=== PATIENT | female | born 1940 | race Caucasian/White ===

== ENCOUNTER 2017-11-12 10:34 | Observation (INO) | payer MEDICARE, OTHER ==
[2017-11-12] MEDS ORDERED: HYDROmorphone 1 MG/ML Syringe IM ONE (11:53)
--- NOTE | 2017-11-12 12:46 | CT ---
Hip wo Cont Lt INDICATION: soft tissue trauma TECHNIQUE: CT images of the pelvis obtained. Coronal and sagittal reformatted images obtained. No contrast given Dosage reduction and iterative reconstruction techniques employed. COMPARISON: None FINDINGS: No fracture or dislocation. Proximally 13 x 9 x 4 cm hematoma along the gluteal muscles o n the left. Mild degenerative change in the hips and severe degenerative change at the symphysis incl uding possible old fracture fragments. No intrapelvic acute process. Sigmoid diverticulosis without e vidence of diverticulitis. IMPRESSION: 1. Probable large hematoma along the left gluteal muscles. 2. No acute fracture or dislocation.
--- NOTE | 2017-11-12 12:55 | EDM.PDOC ---
ED HPI GENERAL MEDICAL PROBLEM - General Chief Complaint: Lower Extremity Injury/Pain Stated Complaint: FELL ON LEFT SIDE ON HIP AREA Time Seen by Provider: 11/12/17 11:30 Source of Information: Reports: Patient History Limitations: Reports: No Limitations - History of Present Illness INITIAL COMMENTS - FREE TEXT/NARRATIVE: This patient fell a couple feet off her deck and landed on her left side. She complains of pain and swelling to the left hip area. She's able to walk without difficulty except for pain. No anticoagulation. Left Pain Score (Numeric/FACES): 7 - Related Data Allergies Allergy/AdvReac Type Severity Reaction Status Date / Time RADHA Inhibitors Allergy Cough Verified 11/12/17 11:10 acetaminophen Allergy Rash Verified 11/12/17 11:10 [From Darvocet-N] amoxicillin [From Augmentin] Allergy Rash Verified 11/12/17 11:10 clavulanic acid Allergy Rash Verified 11/12/17 11:10 [From Augmentin] propoxyphene Allergy Rash Verified 11/12/17 11:10 [From Darvocet-N] Sulfa (Sulfonamide Allergy Rash Verified 11/12/17 11:10 Antibiotics) Home Meds: Home Meds Aspirin [Halfprin] 81 mg PO DAILY 11/12/17 [History] Clindamycin Phosphate [Cleocin T 1% Gel] 1 applic TOP BID 11/12/17 [History] Levothyroxine 125 mcg PO ACBREAKFAST 11/12/17 [History] Losartan/Hydrochlorothiazide [Losartan-HCTZ 100-12.5 MG] 1 tab PO DAILY [History] Meloxicam 15 mg PO DAILY 11/12/17 [History] Naproxen Sodium [Aleve] 220 mg PO BID 11/12/17 [History] Simvastatin [Zocor] 40 mg PO DAILY 11/12/17 [History] Past Medical History Cardiovascular History: Reports: High Cholesterol, Hypertension Musculoskeletal History: Reports: Osteoarthritis Endocrine/Metabolic History: Reports: Hypothyroidism Oncologic (Cancer) History: Reports: Other (See Below) Other Oncologic History: endometrial cancer - Past Surgical History HEENT Surgical History: Reports: Cataract Surgery Cardiovascular Surgical History: Reports: None GI Surgical History: Reports: Cholecystectomy Female Surgical History: Reports: Hysterectomy Social & Family History - Tobacco Use Smoking Status *Q: Never Smoker - Recreational Drug Use Recreational Drug Use: No Review of Systems - Review of Systems Review Of Systems: ROS reveals no pertinent complaints other than HPI. (Denies any other injury) ED EXAM, GENERAL - Physical Exam Exam: See Below Exam Limited By: No Limitations General Appearance: Alert, Mild Distress, Obese Eye Exam: Bilateral Eye: Normal Inspection Respiratory/Chest: Lungs Clear Cardiovascular: Regular Rate, Rhythm Back Exam: Normal Inspection Extremities: Other (FROM left hip but large hard mass posterior to left hip appears to be in soft tissue.) Course - Vital Signs Last Recorded V/S: Last Vital Signs Temp 35.7 C 11/12/17 12:13 Pulse 68 11/12/17 12:13 Resp 16 11/12/17 12:13 BP 111/52 L 11/12/17 12:13 Pulse Ox 90 L 11/12/17 12:13 - Orders/Labs/Meds Labs: Laboratory Tests 11/12/17 11/12/17 11/12/17 Range/Units 12:51 12:51 12:51 WBC 15.7 H (4.5-11.0) K/uL RBC 4.58 (3.30-5.50) M/uL Hgb 14.0 (12.0-15.0) g/dL Hct 42.0 (36.0-48.0) % MCV 92 (80-98) fL MCH 31 (27-31) pg MCHC 33 (32-36) % Plt Count 267 (150-400) K/uL Neut % (Auto) 84 H (36-66) % Lymph % (Auto) 9 L (24-44) % [place] % (Auto) 6 (2-6) % Eos % (Auto) 0 L (2-4) % Baso % (Auto) 0 (0-1) % PT 10.7 (9.5-12.0) sec INR 0.97 (0.80-1.20) APTT 24.2 L (27.0-36.0) sec Sodium 141 (140-148) mmol/L Potassium 3.9 (3.6-5.2) mmol/L Chloride 106 (100-108) mmol/L Carbon Dioxide 24 (21-32) mmol/L Anion Gap 10.7 (5.0-14.0) mmol/L BUN 17 (7-18) mg/dL Creatinine 0.9 (0.6-1.0) mg/dL Est Cr Clr Drug Dosing 43.77 mL/min Estimated GFR (MDRD) > 60 (>60) Glucose 141 H (74-106) mg/dL Calcium 9.0 (8.5-10.1) mg/dL Meds: Medications Discontinued Medications Generic Name Dose Route Start Last Admin Trade Name Freq PRN Reason Stop Dose Admin Hydromorphone HCl 1 mg 11/12/17 11:53 11/12/17 11:57 Dilaudid IM 11/12/17 11:54 1 mg ONETIME ONE Administration - Radiology Interpretation Free Text/Narrative:: CT shows about 13 x 9 x 4 hematoma in soft tissue posterior to left hip. Looks like additional extravasation into tissue - Re-Assessments/Exams Free Text/Narrative Re-Assessment/Exam: 11/12/17 12:[address] Arreguin and he will see in ER. 11/12/17 13:12 Dr Montalvo taking her to surgery Departure - Departure Time of Disposition: 13:13 Disposition: Admitted As Inpatient 64 Condition: Fair Clinical Impression: Hematoma of hip - Discharge Information Referrals: PCP,None [Primary Care Provider] - Forms: ED Department Discharge
[2017-11-12] MEDS ORDERED: hydrOXYzine HCl 100 MG/2 ML SDV IM PRN ×2 (13:52→16:19)
[2017-11-12] MEDS ORDERED: fentaNYL 100 MCG/2 ML SDV IVPUSH PRN ×2 (13:52→16:19)
[2017-11-12] MEDS ORDERED: Zolpidem 5 MG Tab PO PRN ×2 (13:52→16:19)
[2017-11-12] MEDS ORDERED: diphenhydrAMINE 50 MG/ML SDV IVPUSH PRN ×2 (13:52→16:19)
[2017-11-12] MEDS ORDERED: Benzocaine/Cetylpyridinium/Menthol Lozenge MUCMEM PRN ×2 (13:52→16:19)
[2017-11-12] MEDS ORDERED: oxyCODONE 5 MG Tab PO PRN (13:54)
[2017-11-12] MEDS: Lidocaine 1% with EPINEPHrine 1:100,000 50 ML MDV ONE ×2 (14:16→14:45)
[2017-11-12] MEDS: Bupivacaine 0.5% 50 ML MDV ONE ×2 (14:16→14:45)
[2017-11-12] MEDS ORDERED: Clindamycin Phosphate 900 MG in Sodium Chloride 0.9% 100 ML IV ONE (14:30)
[2017-11-12] MEDS ORDERED: Propofol 200 MG/20 ML SDV ONE (14:34)
[2017-11-12] MEDS ORDERED: Lactated Ringers 1,000 ML ONE (14:53)
[2017-11-12] MEDS ORDERED: Docusate Sodium 100 MG Cap PO PRN (16:19)
[2017-11-12] MEDS ORDERED: Ondansetron 4 MG/2 ML SDV IVPUSH PRN (16:19)
[2017-11-12] MEDS ORDERED: Cyclobenzaprine 10 MG Tab PO ONE (16:27)
[2017-11-12] MEDS ORDERED: Cyclobenzaprine 10 MG Tab ONE (16:47)
[2017-11-12] MEDS: Acetaminophen/HYDROcodone 325-5 MG Tab PO PRN (19:52)
[2017-11-13] MEDS: Acetaminophen/HYDROcodone 325-5 MG Tab PO PRN ×3 (00:01→09:49)
[2017-11-13] MEDS: Cyclobenzaprine 10 MG Tab PO PRN ×2 (03:10→08:55)
--- NOTE | 2017-11-13 08:42 | CR ---
Forearm 2V Lt INDICATION: pain COMPARISON: None FINDINGS: 2 views. No fracture, dislocation, or other acute bony abnormality. Degenerative change a t the wrist including chondrocalcinosis at the TFC.
--- NOTE | 2017-11-13 08:59 | OR ---
DATE OF PROCEDURE: 11/12/2017 PROCEDURE: Evacuation of hematoma, left hip, 13 cm x 9 cm. COMPLICATIONS: None. PAD MACHINE OFFBEARER: None. PREOPERATIVE DIAGNOSIS: Hematoma. POSTOPERATIVE DIAGNOSIS: Hematoma. RISKS: Risks, benefits, alternatives, and limitations including, but not limited to infection and bleeding were explained to the patient, and they wished to proceed. PROCEDURE IN DETAIL: The patient was placed in right lateral decubitus position. Left hip had been marked, prepped and draped. A single effie was created in the skin of about 1 cm in size. The hematoma was evacuated using suction and irrigation. A 10 flat Devaughn-Castaneda was then placed within this. This was then sutured into place and dressings were applied. The patient tolerated the procedure well. Phuc Arreguin MD /[id number]
--- NOTE | 2017-11-13 14:26 | DISCH ---
DISCHARGE DIAGNOSIS: Status post drainage of hematoma, left hip. COMPLICATION: Complication during this hospitalization, none. HOSPITAL COURSE: A pleasant 77-year-old female who had a traumatic injury with associated hematoma. The patient was taken to the operating room, had subsequent incision and drainage of this hematoma and drain placement. No complications during this hospitalization. No additional consultations. FOLLOWUP: With Surgery in 7 to 14 days. DISCHARGE MEDICATIONS: Please see MAR, but includes Flexeril for pain. ACTIVITY: As tolerated.
--- NOTE | 2017-11-13 14:32 | PN ---
DATE OF SERVICE: 11/13/2017 SUBJECTIVE: The patient is doing very well. Pain is well controlled. No nausea, vomiting, shortness of breath, or chest pain. She is tolerating the Flexeril well. OBJECTIVE: VITAL SIGNS: Temperature 96.7, blood pressure 116/58, and 91% on room air. HIP: Wound itself, no change. There is some air leaking from the LETITIA, which is acceptable. ASSESSMENT: Status post drainage of hematoma. PLAN: The patient will be discharged today. Please see discharge instructions for further details. Phuc Arreguin MD /[id number]
== END 2017-11-13 11:19 | disposition home or self-care (01) ==
LOC: JP.ED 10:34 → JP.SDS 13:52 → JP.ED 13:52 → JP.MS 13:52 → JP.ED 14:40 → JP.MS 14:40 → JP.SDS 17:26 → JP.MS 18:45
PROVIDERS: ADMIT Surgery; ATTEND Surgery
DX: S70.02XA Contusion of left hip, initial encounter (principal); E78.00 Pure hypercholesterolemia, unspecified; I10 Essential (primary) hypertension; M19.90 Unspecified osteoarthritis, unspecified site; E03.9 Hypothyroidism, unspecified; G47.33 Obstructive sleep apnea (adult) (pediatric); Z79.82 Long term (current) use of aspirin; Z79.1 Long term (current) use of non-steroidal anti-inflammatories (NSAID); Z79.899 Other long term (current) drug therapy; Z88.8 Allergy status to other drugs, medicaments and biological substances; Z88.0 Allergy status to penicillin; Z88.2 Allergy status to sulfonamides; W17.89XA Other fall from one level to another, initial encounter
CPT/HCPCS: 10140; 36415; 73090; 73700; 80048; 85025; 85610; 85730; 96365; 96372; 96375; 99285; A9270; J1170; J2704; J7030; J7120; S0077

== ENCOUNTER 2017-11-15 10:00 | Emergency (ER) | payer MEDICARE, OTHER ==
[2017-11-15] MEDS ORDERED: HYDROmorphone 0.5 MG/0.5 ML Syringe IVPUSH ONE ×2 (10:11→10:46)
--- NOTE | 2017-11-15 10:17 | EDM.PDOC ---
ED HPI GENERAL MEDICAL PROBLEM - General Chief Complaint: Chest Pain Stated Complaint: BACK PAIN, TIGHTNESS IN CHEST Time Seen by Provider: 11/15/17 10:01 Source of Information: Reports: Patient History Limitations: Reports: No Limitations - History of Present Illness INITIAL COMMENTS - FREE TEXT/NARRATIVE: Patient fell a couple of days ago; had a hematoma to the left hip; has been drained and a drain is in place. She states she is having pain to the left parascapular region. Has been constant since 0300 and it hurts to take a deep breath; denies cad, lung issues or diabetes. She used otc meds and muscle relaxer but this isn't helping her, and thus she has come to the ER. Onset: Gradual Location: Reports: Chest Quality: Reports: Sharp, Stabbing Severity: Moderate Improves with: Reports: None Worsens with: Reports: Movement Associated Symptoms: Reports: Loss of Appetite, Shortness of Breath (feels like she cannot take a deep breath) Chest Pain Score (Numeric/FACES): 4 Back Pain Score (Numeric/FACES): 10 - Related Data Allergies Allergy/AdvReac Type Severity Reaction Status Date / Time RADHA Inhibitors Allergy Cough Verified 11/15/17 10:18 acetaminophen Allergy Rash Verified 11/15/17 10:18 [From Darvocet-N] amoxicillin [From Augmentin] Allergy Rash Verified 11/15/17 10:18 clavulanic acid Allergy Rash Verified 11/15/17 10:18 [From Augmentin] oxycodone Allergy Rash Verified 11/15/17 10:18 propoxyphene Allergy Rash Verified 11/15/17 10:18 [From Darvocet-N] Sulfa (Sulfonamide Allergy Rash Verified 11/15/17 10:18 Antibiotics) Home Meds: Home Meds Aspirin [Halfprin] 81 mg PO DAILY 11/12/17 [History] Clindamycin Phosphate [Cleocin T 1% Gel] 1 applic TOP BID 11/12/17 [History] Levothyroxine 125 mcg PO ACBREAKFAST 11/12/17 [History] Losartan/Hydrochlorothiazide [Losartan-HCTZ 100-12.5 MG] 1 tab PO DAILY [History] Meloxicam 15 mg PO DAILY 11/12/17 [History] Naproxen Sodium [Aleve] 220 mg PO BID 11/12/17 [History] Simvastatin [Zocor] 40 mg PO DAILY 11/12/17 [History] Cyclobenzaprine [Flexeril] 10 mg PO Q4H 11/15/17 [History] Past Medical History Cardiovascular History: Reports: High Cholesterol, Hypertension Musculoskeletal History: Reports: Osteoarthritis Endocrine/Metabolic History: Reports: Hypothyroidism Oncologic (Cancer) History: Reports: Other (See Below) Other Oncologic History: endometrial cancer - Past Surgical History HEENT Surgical History: Reports: Cataract Surgery Cardiovascular Surgical History: Reports: None GI Surgical History: Reports: Cholecystectomy Female Surgical History: Reports: Hysterectomy ED ROS GENERAL - Review of Systems Review Of Systems: See Below Constitutional: Reports: Decreased Appetite HEENT: Reports: No Symptoms Respiratory: Reports: Shortness of Breath (hard to take a deep breath; no visibly sob) Cardiovascular: Reports: Chest Pain (chest wall pain, between shoulder blades more to the left side) GI/Abdominal: Reports: No Symptoms : Reports: No Symptoms Musculoskeletal: Reports: Joint Pain (left hip pain) Neurological: Reports: No Symptoms ED EXAM, GENERAL - Physical Exam Exam: See Below Exam Limited By: No Limitations General Appearance: Alert, WD/WN, No Apparent Distress Head: Atraumatic, Normocephalic Neck: Normal Inspection, Full Range of Motion Respiratory/Chest: No Respiratory Distress, Lungs Clear, Normal Breath Sounds Cardiovascular: Regular Rate, Rhythm GI/Abdominal: Normal Bowel Sounds Extremities: Other (dry skin with peeling, lower extremities, left hip, LETITIA drain in place; site is clean and dry; no evidence of infection) Neurological: Alert, Oriented, CN II-XII Intact, Normal Cognition Psychiatric: Normal Affect, Normal Mood Skin Exam: Warm, Dry EKG INTERPRETATION EKG Date: 11/15/17 Time: 10:00 Rhythm: NSR Rate (Beats/Min): 94 [place]: Normal P-Wave: Present QRS: Normal ST-T: Normal QT: Normal Comparison: NA - No Prior EKG Course - Vital Signs Last Recorded V/S: Last Vital Signs Temp 96.6 F 11/15/17 10:05 Pulse 92 11/15/17 10:05 Resp 20 11/15/17 10:05 BP 144/61 H 11/15/17 10:05 Pulse Ox 95 11/15/17 10:05 - Orders/Labs/Meds Orders: Active Orders 24 hr Category Date Time Status Cardiac Monitoring [RC] .As Directed Care 11/15/17 10:04 Active EKG Documentation Completion [RC] ASDIRECTED Care 11/15/17 10:05 Active Peripheral IV Care [RC] . DIRECTED Care 11/15/17 10:11 Active Chest 2V [CR] Stat Exams 11/15/17 10:45 Taken Sodium Chloride 0.9% [Saline Flush] Med 11/15/17 10:11 Active 10 ml FLUSH ASDIRECTED PRN Peripheral IV Insertion Adult [OM.PC] Stat Oth 11/15/17 10:11 Ordered EKG 12 Lead [EK] Stat Ther 11/15/17 10:04 Ordered Medication Orders Sodium Chloride (Saline Flush) 10 ml FLUSH ASDIRECTED PRN PRN Reason: Keep Vein Open Last Admin: 11/15/17 11:37 Dose: 10 ml Admin: 11/15/17 10:29 Dose: 10 ml Labs: Laboratory Tests 11/15/17 11/15/17 11/15/17 Range/Units 10:20 10:20 10:20 WBC 9.2 (4.5-11.0) K/uL RBC 4.35 (3.30-5.50) M/uL Hgb 13.2 (12.0-15.0) g/dL Hct 40.5 (36.0-48.0) % MCV 93 (80-98) fL MCH 30 (27-31) pg MCHC 33 (32-36) % Plt Count 278 (150-400) K/uL Neut % (Auto) 79 H (36-66) % Lymph % (Auto) 13 L (24-44) % [place] % (Auto) 6 (2-6) % Eos % (Auto) 2 (2-4) % Baso % (Auto) 0 (0-1) % APTT 25.9 L (27.0-36.0) sec Sodium 139 L (140-148) mmol/L Potassium 3.8 (3.6-5.2) mmol/L Chloride 101 (100-108) mmol/L Carbon Dioxide 29 (21-32) mmol/L Anion Gap 12.8 (5.0-14.0) mmol/L BUN 13 (7-18) mg/dL Creatinine 0.9 (0.6-1.0) mg/dL Est Cr Clr Drug Dosing 43.77 mL/min Estimated GFR (MDRD) > 60 (>60) Glucose 118 H (74-106) mg/dL Calcium 9.5 (8.5-10.1) mg/dL Total Bilirubin 0.6 (0.2-1.0) mg/dL AST 26 (15-37) U/L ALT 24 (12-78) U/L Alkaline Phosphatase 74 (46-116) U/L Troponin I < 0.017 (0.000-0.056) ng/mL Total Protein 7.0 (6.4-8.2) g/dL Albumin 3.4 (3.4-5.0) g/dL Globulin 3.6 H (2.3-3.5) g/dL Albumin/Globulin Ratio 0.9 L (1.2-2.2) Meds: Medications Generic Name Dose Route Start Last Admin Trade Name Freq PRN Reason Stop Dose Admin Sodium Chloride 10 ml 11/15/17 10:11 11/15/17 11:37 Saline Flush FLUSH 10 ml ASDIRECTED PRN Administration Keep Vein Open Discontinued Medications Generic Name Dose Route Start Last Admin Trade Name Freq PRN Reason Stop Dose Admin Hydromorphone HCl 0.5 mg 11/15/17 10:11 11/15/17 10:29 Dilaudid IVPUSH 11/15/17 10:12 0.5 mg ONETIME ONE Administration Hydromorphone HCl 0.5 mg 11/15/17 10:46 11/15/17 11:36 Dilaudid IVPUSH 11/15/17 10:47 0.5 mg ONETIME ONE Administration - Re-Assessments/Exams Free Text/Narrative Re-Assessment/Exam: 11/15/17 12:15 chest xray, ekg and labs reviewed with patient and daughter. Stable. Pain is managed with dilaudid. Departure - Departure Time of Disposition: 12:16 Disposition: Home, Self-Care 01 Condition: Good Clinical Impression: Chest wall pain - Discharge Information Instructions: Nonspecific Chest Pain, Chest Wall Pain Referrals: PCP,None [Primary Care Provider] - Forms: ED Department Discharge Additional Instructions: Be sure to be taking deep breaths, even if it hurts Ibuprofen 400-600 mg every 8 hours for pain [place] as directed; may be taken with Ibuprofen; do not drink or drive while using pain medication. Be sure to hydrate plenty; pain medications can make you constipated. - Problem List & Annotations (1) Chest wall pain SNOMED Code(s): 297643621 Code(s): R07.89 - OTHER CHEST PAIN Status: Acute Priority: Medium Current Visit: Yes - Problem List Review Problem List Initiated/Reviewed/Updated: Yes - My Orders Last 24 Hours: My Active Orders 11/15/17 10:04 Cardiac Monitoring [RC] .As Directed EKG 12 Lead [EK] Stat 11/15/17 10:05 EKG Documentation Completion [RC] ASDIRECTED 11/15/17 10:11 Peripheral IV Care [RC] . DIRECTED Sodium Chloride 0.9% [Saline Flush] 10 ml FLUSH ASDIRECTED PRN Peripheral IV Insertion Adult [OM.PC] Stat 11/15/17 10:45 Chest 2V [CR] Stat - Assessment/Plan Last 24 Hours: My Active Orders 11/15/17 10:04 Cardiac Monitoring [RC] .As Directed EKG 12 Lead [EK] Stat 11/15/17 10:05 EKG Documentation Completion [RC] ASDIRECTED 11/15/17 10:11 Peripheral IV Care [RC] . DIRECTED Sodium Chloride 0.9% [Saline Flush] 10 ml FLUSH ASDIRECTED PRN Peripheral IV Insertion Adult [OM.PC] Stat 11/15/17 10:45 Chest 2V [CR] Stat
[2017-11-15] MEDS: Sodium Chloride 0.9% 10 ML Syringe FLUSH PRN ×2 (10:29→11:37)
--- NOTE | 2017-11-16 09:06 | CR ---
CHEST: AP and lateral sitting CLINICAL HISTORY:Shortness of breath, pain, fall COMPARISON:2006 FINDINGS: There are slightly displaced fractures of the left third and fourth the posterior ribs the re is no obvious pleural effusion or pneumothorax.. IMPRESSION: Acute fractures of the left third and fourth ribs. Additional rib fractures are suspecte d. If relevant, dedicated rib study is a consideration Lung hatch are clear
== END 2017-11-15 12:36 | disposition home or self-care (01) ==
LOC: JP.ED 10:00
DX: R07.89 Other chest pain (principal); E78.00 Pure hypercholesterolemia, unspecified; I10 Essential (primary) hypertension; E03.9 Hypothyroidism, unspecified; Z88.6 Allergy status to analgesic agent; Z88.5 Allergy status to narcotic agent; Z88.2 Allergy status to sulfonamides; Z88.1 Allergy status to other antibiotic agents; Z79.82 Long term (current) use of aspirin; Z79.899 Other long term (current) drug therapy
CPT/HCPCS: 36415; 71046; 80053; 84484; 85025; 85730; 93005; 96361; 96374; 96376; 99284; J1170; J7050

== ENCOUNTER 2017-11-18 13:48 | Emergency (ER) | payer MEDICARE, OTHER ==
[2017-11-18] MEDS ORDERED: Sodium Chloride 0.9% 10 ML Syringe FLUSH ONE (16:10)
[2017-11-18] MEDS ORDERED: Sodium Chloride 0.9% 75 ML IV SCH (16:15)
[2017-11-18] MEDS ORDERED: Iopamidol 612 MG/ML 100 ML Bottle IV SCH (16:15)
--- NOTE | 2017-11-18 17:27 | EDM.PDOC ---
ED HPI GENERAL MEDICAL PROBLEM - General Chief Complaint: General Stated Complaint: BACK AND RIB PAIN FELL NOVEMBER 12 Time Seen by Provider: 11/18/17 14:40 Source of Information: Reports: Patient History Limitations: Reports: No Limitations - History of Present Illness INITIAL COMMENTS - FREE TEXT/NARRATIVE: pt fell several days ago and hit the left side of her ches. She waas found to have 5 fractured ribs. She is doing ok at home. She had a chest xray today which showed some pleural effusion. Onset: Today, Gradual Duration: Day(s):, Other (pt has been dealing with the pain for days. She did receive [place] from the clinic today. ) Location: Reports: Chest Associated Symptoms: Reports: No Other Symptoms, Shortness of Breath, Other ( pain with deep breathing. ) left rib Pain Score (Numeric/FACES): 8 - Related Data Allergies Allergy/AdvReac Type Severity Reaction Status Date / Time RADHA Inhibitors Allergy Cough Verified 11/18/17 14:43 acetaminophen Allergy Rash Verified 11/18/17 14:43 [From Darvocet-N] amoxicillin [From Augmentin] Allergy Rash Verified 11/18/17 14:43 clavulanic acid Allergy Rash Verified 11/18/17 14:43 [From Augmentin] oxycodone Allergy Rash Verified 11/18/17 14:43 propoxyphene Allergy Rash Verified 11/18/17 14:43 [From Darvocet-N] Sulfa (Sulfonamide Allergy Rash Verified 11/18/17 14:43 Antibiotics) Home Meds: Home Meds Aspirin [Halfprin] 81 mg PO DAILY 11/12/17 [History] Clindamycin Phosphate [Cleocin T 1% Gel] 1 applic TOP BID 11/12/17 [History] Levothyroxine 125 mcg PO ACBREAKFAST 11/12/17 [History] Losartan/Hydrochlorothiazide [Losartan-HCTZ 100-12.5 MG] 1 tab PO DAILY [History] Meloxicam 15 mg PO DAILY 11/12/17 [History] Naproxen Sodium [Aleve] 220 mg PO BID 11/12/17 [History] Simvastatin [Zocor] 40 mg PO DAILY 11/12/17 [History] Cyclobenzaprine [Flexeril] 10 mg PO Q4H 11/15/17 [History] Hydrocodone/Acetaminophen [Hydrocodon-Acetaminophen 5-325] 1 tab PO ASDIRECTED PRN 11/18/17 [History] Past Medical History Cardiovascular History: Reports: High Cholesterol, Hypertension Musculoskeletal History: Reports: Osteoarthritis Endocrine/Metabolic History: Reports: Hypothyroidism Oncologic (Cancer) History: Reports: Other (See Below) Other Oncologic History: endometrial cancer - Past Surgical History HEENT Surgical History: Reports: Cataract Surgery Cardiovascular Surgical History: Reports: None GI Surgical History: Reports: Cholecystectomy Female Surgical History: Reports: Hysterectomy Social & Family History - Tobacco Use Smoking Status *Q: Never Smoker - Recreational Drug Use Recreational Drug Use: No ED ROS GENERAL - Review of Systems Review Of Systems: See Below Constitutional: Reports: No Symptoms HEENT: Reports: No Symptoms Respiratory: Reports: Shortness of Breath, Cough Cardiovascular: Reports: No Symptoms Endocrine: Reports: No Symptoms GI/Abdominal: Reports: No Symptoms : Reports: No Symptoms Musculoskeletal: Reports: No Symptoms Skin: Reports: No Symptoms ED EXAM, GENERAL - Physical Exam Exam: See Below Free Text/Narrative:: pt fell and was found to have 5 fractured ribs on the left. She is deep breathing fairl;y well. She has good o2 sats. Exam Limited By: No Limitations General Appearance: Alert, Anxious, Moderate Distress Ears: Normal TMs Nose: Normal Inspection Throat/Mouth: Normal Inspection Head: Atraumatic Neck: Normal Inspection Respiratory/Chest: No Respiratory Distress, Other (pt is deep breathing well and she has good air exchange at the lung bases. ) Cardiovascular: Regular Rate, Rhythm GI/Abdominal: Soft, Non-Tender (Female) Exam: Deferred Rectal (Female) Exam: Deferred Back Exam: Normal Inspection Extremities: Normal Inspection Neurological: Alert, Oriented, Normal Cognition Course - Vital Signs Last Recorded V/S: Last Vital Signs Temp 35.7 C 11/18/17 14:41 Pulse 80 11/18/17 17:00 Resp 16 11/18/17 17:00 BP 150/63 H 11/18/17 17:00 Pulse Ox 99 11/18/17 17:00 - Orders/Labs/Meds Orders: Active Orders 24 hr Category Date Time Status Chest w Cont [CT] Stat Exams 11/18/17 16:01 Taken Iopamidol [Isovue-300 (61%)] Med 11/18/17 16:15 Active 100 ml IV . DIRECTED Sodium Chloride 0.9% [Normal Saline] 75 ml Med 11/18/17 16:15 Active IV ASDIRECTED Medication Orders Sodium Chloride (Normal Saline) 75 mls @ 3 mls/sec IV ASDIRECTED AMANDA Last Admin: 11/18/17 16:52 Dose: 3 mls/sec Iopamidol (Isovue-300 (61%)) 100 ml IV . DIRECTED AMANDA Last Admin: 11/18/17 16:52 Dose: 100 ml Labs: Laboratory Tests 11/18/17 11/18/17 Range/Units 16:00 16:00 WBC 8.5 (4.5-11.0) K/uL RBC 4.39 (3.30-5.50) M/uL Hgb 13.3 (12.0-15.0) g/dL Hct 41.0 (36.0-48.0) % MCV 93 (80-98) fL MCH 30 (27-31) pg MCHC 32 (32-36) % Plt Count 336 (150-400) K/uL Neut % (Auto) 71 H (36-66) % Lymph % (Auto) 17 L (24-44) % [place] % (Auto) 8 H (2-6) % Eos % (Auto) 4 (2-4) % Baso % (Auto) 0 (0-1) % Sodium 136 L (140-148) mmol/L Potassium 4.1 (3.6-5.2) mmol/L Chloride 100 (100-108) mmol/L Carbon Dioxide 28 (21-32) mmol/L Anion Gap 12.1 (5.0-14.0) mmol/L BUN 17 (7-18) mg/dL Creatinine 0.8 (0.6-1.0) mg/dL Est Cr Clr Drug Dosing 49.24 mL/min Estimated GFR (MDRD) > 60 (>60) Glucose 114 H (74-106) mg/dL Calcium 9.2 (8.5-10.1) mg/dL Total Bilirubin 0.7 (0.2-1.0) mg/dL AST 24 (15-37) U/L ALT 25 (12-78) U/L Alkaline Phosphatase 86 (46-116) U/L Total Protein 7.0 (6.4-8.2) g/dL Albumin 3.1 L (3.4-5.0) g/dL Globulin 3.9 H (2.3-3.5) g/dL Albumin/Globulin Ratio 0.8 L (1.2-2.2) Meds: Medications Generic Name Dose Route Start Last Admin Trade Name Freq PRN Reason Stop Dose Admin Sodium Chloride 75 mls @ 3 mls/sec 11/18/17 16:15 11/18/17 16:52 Normal Saline IV 3 mls/sec ASDIRECTED AMANDA Administration Iopamidol 100 ml 11/18/17 16:15 11/18/17 16:52 Isovue-300 (61%) IV 100 ml . DIRECTED AMANDA Administration Discontinued Medications Generic Name Dose Route Start Last Admin Trade Name Freq PRN Reason Stop Dose Admin Sodium Chloride 10 ml 11/18/17 16:10 11/18/17 16:51 Saline Flush FLUSH 11/18/17 16:11 10 ml ONETIME ONE Administration - Re-Assessments/Exams Free Text/Narrative Re-Assessment/Exam: 11/18/17 17:34 cat scan of the chest was done which showed a very small pleural effussion, and the 5 fractured ribs. Departure - Departure Time of Disposition: 17:24 Disposition: Home, Self-Care 01 Condition: Fair Clinical Impression: Fracture of five ribs of left side - Discharge Information Referrals: PCP,None [Primary Care Provider] - Forms: ED Department Discharge Care Plan Goals: cont with same care, use the essentive spirometer, cont with pain meds she is on , get up and do some walking when she is up to the bathroom. - My Orders Last 24 Hours: My Active Orders 11/18/17 16:01 Chest w Cont [CT] Stat 11/18/17 16:15 Iopamidol [Isovue-300 (61%)] 100 ml IV . DIRECTED Sodium Chloride 0.9% [Normal Saline] 75 ml IV ASDIRECTED - Assessment/Plan Last 24 Hours: My Active Orders 11/18/17 16:01 Chest w Cont [CT] Stat 11/18/17 16:15 Iopamidol [Isovue-300 (61%)] 100 ml IV . DIRECTED Sodium Chloride 0.9% [Normal Saline] 75 ml IV ASDIRECTED
== END 2017-11-18 18:32 | disposition home or self-care (01) ==
LOC: JP.ED 13:48
DX: S22.42XA Multiple fractures of ribs, left side, initial encounter for closed fracture (principal); E78.00 Pure hypercholesterolemia, unspecified; I10 Essential (primary) hypertension; E03.9 Hypothyroidism, unspecified; Z88.6 Allergy status to analgesic agent; Z88.1 Allergy status to other antibiotic agents; Z88.5 Allergy status to narcotic agent; Z88.2 Allergy status to sulfonamides; Z79.82 Long term (current) use of aspirin; Z79.899 Other long term (current) drug therapy; W19.XXXA Unspecified fall, initial encounter
CPT/HCPCS: 36415; 71260; 80053; 85025; 99284; J7030; J7050; Q9967